=== PATIENT | male | born 1940 | race Caucasian/White ===

== ENCOUNTER 2023-04-17 04:08 | Emergency (ER) | payer BC, MEDICARE ==
[2023-04-17] MEDS ORDERED: Dexamethasone 10 MG/ML VIAL ONE (04:48)
== END 2023-04-17 05:43 | disposition home or self-care (01) ==
LOC: BURERS 04:08
DX: B34.9 Viral infection, unspecified (principal)
CPT/HCPCS: 87804; 99283; J1100